=== PATIENT | male | born 1975 ===

== ENCOUNTER 2017-02-26 14:40 | Emergency (ER) | payer OTHER | END 2017-02-26 17:12 | disposition left against medical advice (07) | LOC: UCCORT 14:40 | DX: R56.9 Unspecified convulsions (principal); Z76.0 Encounter for issue of repeat prescription; Z53.21 Procedure and treatment not carried out due to patient leaving prior to being seen by health care provider ==

== ENCOUNTER 2017-05-23 18:26 | Emergency (ER) | payer OTHER ==
[2017-05-23 18:35] VITALS: BP 133/82
--- NOTE | 2017-05-23 18:47 | ED ---
Seizure - HPI Summary HPI Summary: 41 yr old male with seizure disorder, and out of meds for a couple of weeks. He has had three seizures today and feels like he might have another. He is supposed to be on depakote. He states he fell earlier in shower this morning and he has pain to the right lower ribs. denies head or neck pain. - History Of Current Complaint Chief Complaint: UCSeizure Time Seen by Provider: 05/23/17 18:30 - Allergies/Home Medications Allergies/Adverse Reactions: Allergies Allergy/AdvReac Type Severity Reaction Status Date / Time aspirin Allergy Severe respiratory Verified 05/23/17 18:35 Penicillins Allergy Severe respiratory Verified 05/23/17 18:35 Home Medications: Home Medications Divalproex DR TAB(*) [Depakote DR(*)] 1,000 mg PO BID 05/23/17 [History Confirmed 05/23/17] PMH/Surg Hx/FS Hx/Imm Hx Neurological History: Reports: Hx Seizures - Surgical History Hx Anesthesia Reactions: No Infectious Disease History: No Infectious Disease History: Denies: Traveled Outside the [place] in Last 30 Days - Family History Known Family History: Positive: None - Social History Alcohol Use: None Substance Use Type: Reports: Marijuana Substance Use Comment - Amount & Last Used: occasional Smoking Status (MU): Heavy Every Day Tobacco Smoker Type: Cigarettes Amount Used/How Often: 1 ppd Review of Systems Constitutional: Negative Positive: Other - chest wall pain after falling Neurological: Other - seizures All Other Systems Reviewed And Are Negative: Yes Physical Exam Triage Information Reviewed: Yes Vital Signs On Initial Exam: Initial Vitals Temp Pulse Resp BP Pulse Ox 98.2 F 87 16 133/82 97 05/23/17 18:28 05/23/17 18:28 05/23/17 18:28 05/23/17 18:28 05/23/17 18:28 Vital Signs Reviewed: Yes Appearance: Positive: Well-Appearing, No Pain Distress Skin: Positive: Warm, Skin Color Reflects Adequate Perfusion Head/Face: Positive: Normal Head/Face Inspection Eyes: Positive: EOMI Neck: Positive: Nontender Respiratory/Lung Sounds: Positive: Clear to Auscultation, Breath Sounds Present , Other - tender right lower chest wall. Cardiovascular: Positive: RRR. Negative: Murmur Abdomen Description: Positive: Nontender Musculoskeletal: Positive: Strength/ROM Intact Neurological: Positive: Sensory/Motor Intact, Alert, Oriented to Person Place, Time, CN Intact II-III Psychiatric: Positive: Normal - Devan Coma Scale Best Eye Response: 4 - Spontaneous Best Motor Response: 6 - Obeys Commands Best Verbal Response: 5 - Oriented Coma Scale Total: 15 Diagnostics - Vital Signs Vital Signs Temp Pulse Resp BP Pulse Ox 05/23/17 18:28 98.2 F 87 16 133/82 97 - Laboratory Lab Statement: Any lab studies that have been ordered have been reviewed, and results considered in the medical decision making process. Course/Dx - Course Course Of Treatment: 41 yr old with seizure disorder. I have called Luis Granados at [facility] and he is aware the patien tis coming there with seizures today and falls. - Diagnoses Provider Diagnoses: Seizure, Chest wall contusion Discharge - Discharge Plan Condition: Good Disposition: TRANS HIGHER LVL OF CARE FAC Referrals: No Primary Care Phys,NOPCP [Primary Care Provider] -
== END 2017-05-23 19:09 | disposition short-term general hospital (02) ==
LOC: UCCORT 18:26
DX: G40.909 Epilepsy, unspecified, not intractable, without status epilepticus (principal); S20.211A Contusion of right front wall of thorax, initial encounter; W18.2XXA Fall in (into) shower or empty bathtub, initial encounter; Y93.E1 Activity, personal bathing and showering; Y92.002 Bathroom of unspecified non-institutional (private) residence as the place of occurrence of the external cause; Z88.6 Allergy status to analgesic agent; Z88.5 Allergy status to narcotic agent; F12.90 Cannabis use, unspecified, uncomplicated; F17.210 Nicotine dependence, cigarettes, uncomplicated
CPT/HCPCS: 99213; G0463